=== PATIENT | female | born 1955 | race Caucasian/White ===

== ENCOUNTER 2021-09-23 08:52 | Emergency (ER) | payer MEDICARE, OTHER, SELFPAY ==
[2021-09-23 08:54] VITALS: BP 133/62; PULSE 75; RESP 16; TEMP 36.2; O2SAT 95; BMI 32.6
[2021-09-23 08:59] VITALS: O2SAT 96
--- NOTE | 2021-09-23 09:13 | CT_ITS ---
STUDY: CT BRAIN WITHOUT CONTRAST REASON FOR EXAM: Female, 66 years old. Head trauma on blood thinner RADIATION DOSAGE (If Supplied By Facility): CTDIvol = ( 44.99 ) mGy, DLP = ( 829.85 ) mGycm TECHNIQUE: Transaxial CT imaging of the brain was performed without administration of intravenous contrast material. Individualized dose optimization techniques were used for this CT. COMPARISON: No relevant priors. FINDINGS: Normal soft tissue structures. Normal calvarium. Normal size ventricles and extra-axial spaces for the patient''s age. Normal white matter tracts of the cerebral hemispheres. Normal basal ganglia and thalami. Normal brainstem. Normal cerebellum. There is no intracranial hemorrhage. There are no findings of an acute ischemic infarction. Normal visualized paranasal sinuses. CT/Brain/Head without Contrast IMPRESSION: Normal unenhanced CT scan of the brain. Electronically Signed: Toni Chavis MD at 9:46 EDT ,
--- NOTE | 2021-09-23 09:14 | ED.VIS.FALL ---
HPI HPI - Fall History of Present Illness Chief Complaint: Fall Informant: patient and family Occured/Mechanism Occurred: Today Usually ambulates: Without assistance Pain/Injury Pain Location: head and face Current Severity: Mild Maximum Severity: Mild Associated Symptoms Associated Symptoms: Negative for Parasthesias, Weakness, Loss of function, Inability to ambulate, Loss of consciousness or Amnesia Narrative Narrative: 66-year-old female history of A. fib on Eliquis also diabetes and hypertension. Was at the [facility] office today because she had cataract surgery yesterday. Is a follow-up visit. She tripped in the office and fell hitting the right side of her face and forehead and causing abrasions to her left arm and knees. No LOC. Prior to the fall she felt fine. Prior similar symptoms: No Recent Illness/Hospitalization: No PFSH PFSH Medical History Afib Cataract Diabetes HTN (hypertension) Home Medications apixaban 5 mg tablet (Eliquis) 5 mg PO BID 09/23/21 [History Last Taken Unknown] Allergy/AdvReac Type Severity Reaction Status Date / Time No Known Allergies Allergy Verified 09/23/21 08:56 Surgical History History of cholecystectomy Hx of appendectomy Social History Smoking Status: Never smoker ROS ROS ED ROS Narrative Nausea and vomiting on Tuesday since resolved. Review of Systems ROS Unobtainable: Denies due to encephalopathy Constitutional Constitutional ED: Denies chills or fever(s) Eyes Eyes: Denies blurry vision ENT ENT ED: Denies ear pain Cardiovascular Cardiovascular: Denies chest pain Respiratory/Chest Respiratory/Chest: Denies cough or dyspnea Gastrointestinal Gastrointestinal: Reports nausea and vomiting; Denies abdominal pain, constipation, diarrhea or melena Genitourinary Genitourinary ED: Denies dysuria Musculoskeletal Musculoskeletal: Denies arthralgias Integumentary Denies abscess Neurologic Neurologic: Denies headache(s) Psychiatric Psychiatric: Denies anxiety Endocrine Endocrinology: Denies polydipsia Hematologic/Lymphatic Hematologic/Lymphatic: Denies easy bleeding Allergic/Immunologic Allergic/Immunologic ED: Denies mouth swelling EXAM Physical Exam Narrative Exam Narrative: 58-year-old female no acute distress. Vital signs stable afebrile. HEENT exam she has a contusion to her right side of her face including her right lateral forehead about her right eye right cheek. Pupils round reactive light. No dental injury. Scalp and posterior head is nontender. C-spine nontender. Trachea midline. Normal range of motion. Lungs are clear. Heart rate about 75. No murmur. Chest wall and ribs nontender. Abdomen soft nontender. She has a pain pump on her right abdominal wall placed subcutaneously. Pelvic girdle intact. She is moving all 4 extremities. There is no shortening or rotation of the hips. She has mild abrasions to both knees. But has normal flexion extension. No deformity. No significant effusion. Dorsi and plantar flexion intact. She abrasions to her left elbow and hand. Nothing needs to be sewn. Minor skin tear on the dorsum of her back of her hand. She has full flexion-extension of both shoulders, elbows wrist and hands. Back is nontender. Neurologically she is awake and alert with no focal motor deficits. Const Vital Signs: 09/23/21 08:54 09/23/21 08:59 Temperature 97.2 F L Temperature Source Temporal Pulse Rate 75 Respiratory Rate 16 Respiratory Effort Normal Non-Labored Respiratory Depth Normal Respiratory Pattern Normal Blood Pressure 133/62 H Blood Pressure Mean 85 Pulse Ox 95 96 Oxygen Delivery Method Room Air Room Air Positive well nourished, well developed and obese; Negative for cachectic, contractures or unkempt General Appearance ED: well developed and NAD; Negative for unkempt, cachectic or contractures Nutritional Appearance: obese; Negative for cachectic HEENT Reports normocephalic trauma, contusion and tenderness; Negative for atraumatic Eyes PERRL and EOMs intact bilaterally General Eye ED: Negative for pale conjunctiva or scleral icterus Neck full ROM, no lymphadenopathy and supple General: Negative for tenderness Chest Wall inspection of chest normal and palpation of chest normal Resp normal respiratory effort, no retractions and clear to auscultation bilaterally Effort and Inspection: Negative for pain with movement Auscultation: Negative for rales, rhonchi or wheezes Cardio regular rate, S1 normal heart sound, S2 normal heart sound and no murmurs GI non-tender, non-distended and no masses Inspection: Negative for abdominal distention Auscultation: normoactive bowel sounds Palpation: soft Back/Spine no CVA tenderness General Back: Negative for CVA tenderness Cervical Spine: Negative for cervical spine tenderness Thoracic Spine / Upper Back: Negative for ROM limited Lumbar Spine / Lower Back: Negative for lumbar spinal tenderness Neuro oriented x3, CN's II-XII intact bilaterally, moves all extremities and no focal motor deficits Eitan Coma Scale: document GCS findings Spontaneous Obeys Commands Oriented 15 Sensorium / Orientation: alert, oriented to person, oriented to place and oriented to time; Negative for orientation impaired, confused, lethargic or stuporous Motor Exam: strength 5/5 throughout Psych Appearance: Negative for unkempt Skin Lesions: no lesions Rashes: no rashes Trauma: abrasion MDM MDM MDM Narrative Medical decision making narrative: 66-year-old tripped and fell in her doctor's office hitting the right side of her face causing a contusion. She is on the blood thinner Eliquis and a CAT scan will be obtained. She has abrasions on her left elbow and a skin tear to dorsum of her left hand. Also on both knees. There is a be cleaned and dressed. Repeat exam patient doing well at 9:55 AM. She will be discharged home. We went over her CAT scan results. Radiography Diagnostic Testing: Clinical Impression(s) from Imaging Studies Brain CT 09/23/21 09:13 IMPRESSION: Normal unenhanced CT scan of the brain. Electronically Signed: Toni Chavis MD at 9:46 EDT Reading Location ID and State: [address] [place] [address] , Service support , CAT scan showed no intracranial bleed. No acute abnormality. Read by the radiologist. Reviewed by me. Discharge Plan Triage Chief Complaint: Fall ED Provider: Anthony Lara Dx/Rx/DC Orders Clinical Impression: Fall, Closed head injury, Facial contusion, Chronic anticoagulation, Multiple abrasions, History of atrial fibrillation Prescriptions: No Action Eliquis 5 mg Tablet 5 mg PO BID Primary Care Provider: Sven Hernandez NP Referrals: Sven Hernandez [employer], [employer] [Primary Care Provider] - As Needed Activity Restrictions/Additional Instructions: Ice to all sore areas. Keep your abrasions clean and apply antibiotic ointment. Watch for any signs of infection. Your CAT scan was negative. If you develop a severe headache, intractable vomiting or not acting right you would need to be reevaluated. Disposition Disposition: Home, Self Care
== END 2021-09-23 10:13 | disposition home or self-care (01) ==
PROVIDERS: Emergency Provider Emergency Medicine; PCP Nurse Practitioner Primary Care; Visit Provider Emergency Medicine
DX: S00.83XA Contusion of other part of head, initial encounter (principal); I48.91 Unspecified atrial fibrillation; E11.9 Type 2 diabetes mellitus without complications; S61.412A Laceration without foreign body of left hand, initial encounter; S80.211A Abrasion, right knee, initial encounter; S80.212A Abrasion, left knee, initial encounter; S50.312A Abrasion of left elbow, initial encounter; W18.09XA Striking against other object with subsequent fall, initial encounter; Y92.531 Health care provider office as the place of occurrence of the external cause; R11.2 Nausea with vomiting, unspecified; I10 Essential (primary) hypertension; Z79.01 Long term (current) use of anticoagulants
CPT/HCPCS: 70450; 99284

== ENCOUNTER → 2023-09-12 | Outpatient (CLI) | payer MEDICARE, OTHER, SELFPAY ==
--- NOTE | 2023-09-12 12:19 | RAD_ITS ---
STUDY: X-RAY - LUMBAR SPINE REASON FOR EXAM: Female, 68 years old. Postlaminectomy syndrome, not elsewhere classified TECHNIQUE: 3 view(s) of the lumbar spine were obtained. COMPARISON: None FINDINGS: Normal lumbar lordosis. There is no substantial scoliosis. 5 mm of anterolisthesis of L3 on L4. Status post discectomy, interbody fusion, transpedicular fixation at L5/S1 with anatomic alignment. There is multilevel endplate spondylosis of the lumbar vertebrae. There is multi-level degenerative disc disease with multi-level disc space narrowing. There is multilevel facet hypertrophy. The soft tissue structures are unremarkable. Intrathecal pain pump enters the spine at L4 with a catheter continuing superiorly into the thoracic spine. RAD/Lumbar Spine 2 or 3 Views IMPRESSION: No acute fracture or dislocation. Status post discectomy, interbody fusion, transpedicular fixation at L5/S1 with anatomic alignment. Diffuse degenerative disc disease with 5 mm of anterolisthesis of L3 on L4. Intrathecal pain pump. Electronically Signed: Emre Iverson MD at 8:25 EDT ,
== END | disposition home or self-care (01) ==
PROVIDERS: PCP Nurse Practitioner Primary Care; Referring Provider Anesthesiology Pain Medicine; Visit Provider Anesthesiology Pain Medicine
DX: M96.1 Postlaminectomy syndrome, not elsewhere classified (principal)
CPT/HCPCS: 72100

== ENCOUNTER → 2024-08-06 | Outpatient (CLI) | payer MEDICARE, OTHER, SELFPAY ==
--- NOTE | 2024-08-06 14:17 | RAD_ITS ---
PROCEDURE: LUMBAR SPINE 2 OR 3 VIEWS 08/06/2024 REASON FOR EXAM: FALL TECHNIQUE: LUMBAR SPINE 2 OR 3 VIEWS COMPARISON: None. FINDINGS: Unremarkable low lumbar fusion metallic hardware at L5-S1. Grade 1 anterolisthesis of L3 on L4. Mildly exaggerated lumbar lordosis. Mild levoscoliosis apex at L3. Spinal stimulator is noted. There are diffuse spondylotic changes. Findings are demonstrated to by diffuse disc space narrowing, osteophyte formation and degenerative endplate sclerosis. There is diffuse facet joint arthropathy with secondary bilateral neural foramina narrowing. No fracture or dislocation is seen. No aggressive lytic or blastic bony lesion is noted. RAD/Lumbar Spine 2 or 3 Views IMPRESSION: No evidence for acute abnormality. Reading [facility]
--- NOTE | 2024-08-06 14:17 | RAD_ITS ---
PROCEDURE: SACRUM-COCCYX MIN 2 VIEWS 08/06/2024 REASON FOR EXAM: FALL TECHNIQUE: SACRUM-COCCYX MIN 2 VIEWS COMPARISON: None. FINDINGS: Mild osteopenia. Unremarkable lower lumbar fusion metallic hardware at L5-S1. Spinal stimulator is noted. Normal bilateral sacral ala. Moderate arthrosis of bilateral sacroiliac joints. Normal sacral vertebrae with osseous fusion. Normal sacrococcygeal junction with a normal angulation. Normal coccygeal segments. Normal visualized soft tissue structures. RAD/Sacrum-Coccyx min 2 Views IMPRESSION: No evidence for acute abnormality. Reading [facility]
== END | disposition home or self-care (01) ==
PROVIDERS: PCP Nurse Practitioner Primary Care; Referring Provider Anesthesiology Pain Medicine; Visit Provider Anesthesiology Pain Medicine
DX: M54.50 Low back pain, unspecified (principal); W19.XXXA Unspecified fall, initial encounter
CPT/HCPCS: 72100; 72220